=== PATIENT | male | born 1995 | race Caucasian/White ===

== ENCOUNTER 2017-02-09 15:07 | Day surgery (SDC) | payer BC ==
--- NOTE | 2017-02-22 17:08 | Operative Note ---
DATE OF SURGERY: 02/09/2017. PREOPERATIVE DIAGNOSIS: Urinary urgency and frequency and hesitancy. POSTOPERATIVE DIAGNOSIS: Urinary urgency and frequency and hesitancy. OPERATION: CYSTOSCOPY. Anesthesia: Local. Indication: A 21-year-old male with a history of the above symptoms, who presents for further urological investigation today. PROCEDURE: Preop informed consent was obtained. Antibiotics were given. The patient was brought to the procedure room at the [facility], placed supine, the genitalia were prepped and draped sterilely. Lidocaine jelly was placed in the urethra, and flexible cystoscopy was carried out. The urethra appears completely unremarkable. The prostate appears nonobstructive, and the bladder was entered and inspected carefully. Both ureteral orifices had normal appearance and positioning, and the bladder showed no evidence of any abnormality whatsoever. The scope was then withdrawn. The procedure was terminated, and patient tolerated the procedure well. PLAN: The patient's urinary symptoms are mild at this time. He does not desire any treatment. There is no evidence of any bladder outlet obstruction or urinary tract abnormality, and he will call for further treatment in the future as needed. CC: DO FLORA Chung
== END 2017-02-09 16:41 | disposition home or self-care (01) ==
LOC: HOP 15:07
PROVIDERS: ATTEND Urology
DX: R39.15 Urgency of urination (principal); R39.11 Hesitancy of micturition; R35.0 Frequency of micturition

== ENCOUNTER 2018-09-23 11:21 | Emergency (ER) | payer BC ==
[2018-09-23] MEDS ORDERED: PROPARACAINE HCL OPTH 15ML BTL OPTH ONE (11:31)
--- NOTE | 2018-09-23 11:48 | Emergency Department Record ---
History of Present Illness - General Chief complaint: Eye Problem Stated complaint: Glass in left eye Time Seen by Provider: 09/23/18 11:28 Source: Patient Mode of Arrival: Ambulatory Limitations: No limitations - History of Present Illness Initial comments: The patient is here due to L eye irritation for one day. 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 He then felt that he may have had some glass in the L eye. He then flushed the eye out but it has been irritated since. There has been no blurred vision or visual changes and the patient does not wear contacts. chief complaint: Other Onset/Timin -: Days(s) Onset Description: Sudden Location: Left eye Place: Work Severity: Moderate Severity scale (1-10): 1 If Pain, Quality: Aching Context: Injury, Trauma Treatments Prior to Arrival: Irrigated eye - Related Data Visual acuity (L) = 20/: 30 Visual acuity (R) = 20/: 40 With correction: No Patient Tetanus UTD (within 5 yrs): Yes Home Medications Medication Instructions Recorded Confirmed Last Taken No Home Med [NO HOME MEDS] 09/23/18 09/23/18 Unknown Allergies Allergy/AdvReac Type Severity Reaction Status Date / Time No Known Drug Allergies Allergy Verified 09/23/18 11:28 Travel Screening - Travel/Exposure Within Last 30 Days Have you traveled within the last 30 days?: No - Travel/Exposure Within Last Year Have you traveled outside the [place] in the last year?: No - Additonal Travel Details Have you been exposed to anyone with a communicable illness?: No - Travel Symptoms Symptom Screening: None Review of Systems Constitutional: Denies: Chills, Fever Eyes: Denies: Eye discharge, Eye pain, Photophobia ENT: Denies: Congestion Respiratory: Denies: Cough Past Medical History - SOCIAL HISTORY Smoking Status: Never smoker Alcohol Use: Occasional Drug Use: None - RESPIRATORY Hx Respiratory Disorders: No - CARDIOVASCULAR Hx Cardio Disorders: No - NEURO Hx Neuro Disorders: Yes Comment:: TBI - GI Hx GI Disorders: No - Hx Genitourinary Disorders: No - ENDOCRINE Hx Endocrine Disorders: No - MUSCULOSKELETAL Hx Musculoskeletal Disorders: Yes Hx Back Injury: Yes Comment:: Broken vertebrae - PSYCH Hx Psych Problems: No - HEMATOLOGY/ONCOLOGY Hx Hematology/Oncology Disorders: No Family Medical History Any Significant Family History?: Yes Hx Cancer: Grandparents Physical Exam - General General Appearance: Alert, Oriented x3, Cooperative, No acute distress - Head Head exam: Atraumatic, Normocephalic, Normal inspection - Eye Eye exam: Normal appearance, PERRL, EOMI, Other (There was a FB under the L upper eyelid that appeared to be very thin like paper. It measured approx. 2x5 mm and was easily removed with a Qtip. The L cornea was clear and without any abrasions.). negative: Conjunctival injection, Nystagmus, Periorbital swelling , Periorbital tenderness Visual acuity (L) = 20/: 30 Visual acuity (R) = 20/: 40 With correction: No Course Vital Signs 09/23/18 11:23 Temperature 98.2 F Pulse Rate 84 Respiratory 16 Rate Blood Pressure 119/78 Pulse Ox 99 - Reevaluation(s) Reevaluation #1: I explained to the patient that I believe the FB under the L upper eyelid was the issue and I see no evidence of any corneal injury or glass FB. 09/23/18 11:47 Reevaluation #2: The patient is doing very well at this time. His FB sensation has resolved and he is ready for discharge. 09/23/18 12:03 Disposition Disposition: Discharge Clinical Impression: Foreign body, eye Qualifiers: Encounter type: initial encounter Laterality: left Qualified Code(s): T15.92XA - Foreign body on external eye, part unspecified, left eye, initial encounter Disposition: Home, Self-Care Condition: (2) Stable Instructions: Eye Foreign Body (ED) Additional Instructions: Return to the ER for any problems or new issues. Please see an eye doctor next week for a full eye exam. Forms: Patient Portal Access Time of Disposition: 11:49 Quality - Quality Measures Quality Measures: N/A - Blood Pressure Screening View Details: Yes Does Patient Have Any of the Following: No Blood Pressure Classification: Normal BP Reading Systolic Measurement: 119 Diastolic Measurement: 78 Screening for High Blood Pressure: < Normal BP, F/U Not Required > [G8783]
== END 2018-09-23 12:06 | disposition home or self-care (01) ==
LOC: ER 11:21
DX: T15.12XA Foreign body in conjunctival sac, left eye, initial encounter (principal); S00.252A Superficial foreign body of left eyelid and periocular area, initial encounter; W25.XXXA Contact with sharp glass, initial encounter; Y99.0 Civilian activity done for income or pay
CPT/HCPCS: 65205; 99283

== ENCOUNTER 2019-08-30 12:48 | Emergency (ER) | payer BC ==
--- NOTE | 2019-08-30 13:24 | Emergency Department Record ---
History of Present Illness - General Chief Complaint: Ankle/Foot Injury Stated Complaint: LT ANKLE INJURY Time Seen by Provider: 08/30/19 13:22 Source: Patient Mode of Arrival: Ambulatory - History of Present Illness Initial Comments: The patient injured his heel while snowboarding last 08-27-19. He continues to have pain in his heel and is limping with ambulation. He denies other injury. MD Complaint: Foot injury (left heel) Onset/Timin -: Days(s) Type of Injury: Blunt Place: Street/outdoors Severity scale (1-10): 8 Improves With: Immobilization, Rest Worsens With: Palpation, Weight bearing Context: Jumping, Other Associated Symptoms: Able to partially bear weight - Related Data Allergies Allergy/AdvReac Type Severity Reaction Status Date / Time No Known Drug Allergies Allergy Verified 08/30/19 13:05 Travel Screening - Travel/Exposure Within Last 30 Days Have you traveled within the last 30 days?: Yes Location Detail:: [place] - Travel/Exposure Within Last Year Have you traveled outside the [place] in the last year?: No - Additonal Travel Details Have you been exposed to anyone with a communicable illness?: No - Travel Symptoms Symptom Screening: None Review of Systems Reviewed: No additional complaints except as noted below Constitutional: Reports: As per HPI. Denies: Chills, Fever, Malaise, Night sweats, Weakness, Weight change Eyes: Reports: As per HPI. Denies: Eye discharge, Eye pain, Photophobia, Vision change ENT: Reports: As per HPI. Denies: Congestion, Dental pain, Ear pain, Epistaxis, Hearing loss, Throat pain Respiratory: Reports: As per HPI. Denies: Cough, Dyspnea, Hemoptysis, Stridor, Wheezes Cardiovascular: Reports: As per HPI. Denies: Arrhythmia, Chest pain, Dyspnea on exertion, Edema, Murmurs, Orthopnea, Palpitations, Paroxysmal nocturnal dyspnea, Rheumatic Fever, Syncope Endocrine: Reports: As per HPI. Denies: Fatigue, Heat or cold intolerance, Polydipsia, Polyuria Gastrointestinal: Reports: As per HPI. Denies: Abdominal pain, Constipation, Diarrhea, Hematemesis, Hematochezia, Melena, Nausea, Vomiting Genitourinary: Reports: As per HPI. Denies: Dysuria, Frequency, Hematuria, Incontinence, Retention, Testicular pain, Testicular mass, Urgency Musculoskeletal: Reports: As per HPI. Denies: Arthralgia, Back pain, Gout, Joint swelling, Myalgia, Neck pain Skin: Reports: As per HPI. Denies: Bruising, Change in color, Change in hair/nails, Lesions, Pruritus, Rash Neurological: Reports: As per HPI. Denies: Abnormal gait, Confusion, Headache, Numbness, Paresthesias, Seizure, Tingling, Tremors, Vertigo, Weakness Psychiatric: Reports: As per HPI. Denies: Anxiety, Auditory hallucinations, Depression, Homicidal thoughts, Suicidal thoughts, Visual hallucinations Hematological/Lymphatic: Reports: As per HPI. Denies: Anemia, Blood Clots, Easy bleeding, Easy bruising, Swollen glands Past Medical History - SOCIAL HISTORY Smoking Status: Never smoker Alcohol Use: None Drug Use: None - RESPIRATORY Hx Respiratory Disorders: No - CARDIOVASCULAR Hx Cardio Disorders: No - NEURO Hx Neuro Disorders: Yes Comment:: TBI - GI Hx GI Disorders: No - Hx Genitourinary Disorders: No - ENDOCRINE Hx Endocrine Disorders: No - MUSCULOSKELETAL Hx Musculoskeletal Disorders: Yes Hx Back Injury: Yes Comment:: Broken vertebrae - PSYCH Hx Psych Problems: No - HEMATOLOGY/ONCOLOGY Hx Hematology/Oncology Disorders: No Family Medical History Any Significant Family History?: Yes Hx Cancer: Grandparents Physical Exam - General General Appearance: Alert, Oriented x3, Cooperative, No acute distress - Head Head exam: Normal inspection - Eye Eye exam: Normal appearance, PERRL Pupils: Normal accommodation - ENT ENT exam: Normal exam, Mucous membranes moist, Normal external ear exam, Normal orophraynx, TM's normal bilaterally Ear exam: Normal external inspection. negative: External canal tenderness Nasal Exam: Normal inspection. negative: Discharge, Sinus tenderness Mouth exam: Normal external inspection, Tongue normal Teeth exam: Normal inspection. negative: Dental caries Throat exam: Normal inspection. negative: Tonsillar erythema, Tonsillar exudate - Neck Neck exam: Normal inspection, Full ROM. negative: Lymphadenopathy, Meningismus, Tenderness - Respiratory Respiratory exam: Normal lung sounds bilaterally. negative: Respiratory distress - Cardiovascular Cardiovascular Exam: Regular rate - GI/Abdominal GI/Abdominal exam: Soft. negative: Tenderness - Rectal Rectal exam: Deferred - exam: Deferred - Extremities Extremities exam: Normal inspection, Full ROM, Normal capillary refill, Tenderness (tender over bottom of left heel on palpation. NO tenderness to foot, ankle, proximal fib.). negative: Calf tenderness, Pedal edema - Back Back exam: Reports: Normal inspection, Full ROM. Denies: Muscle spasm, Rash noted, Tenderness - Neurological Neurological exam: Alert, Normal gait, Oriented X3, Reflexes normal - Psychiatric Psychiatric exam: Normal affect, Normal mood - Skin Skin exam: Dry, Intact, Normal color, Warm Course Vital Signs 08/30/19 13:06 Temperature 98.1 F Pulse Rate 88 Respiratory 20 Rate Blood Pressure 137/85 Pulse Ox 98 Medical Decision Making - Data Complexity MDM Data: X-Ray Ordered and/or Reviewed (Left Heel xray negative per radiologist.) Disposition Disposition: Discharge Clinical Impression: Contusion of left heel Qualifiers: Encounter type: initial encounter Qualified Code(s): S90.32XA - Contusion of left foot, initial encounter Disposition: Home, Self-Care Condition: (1) Good Instructions: Heel Spur (ED), Exercise Safety (ED), Calcaneal Fracture (ED) Additional Instructions: Ice. elevate. Tylenol alternated with ibuprofen as needed as directed. Use crutches for ambulation until heel is 100% painfree. PCP follow up as needed and for recheck in office this week. Quality - Quality Measures Quality Measures: N/A - Blood Pressure Screening Does Patient Have Any of the Following: No Blood Pressure Classification: Pre-Hypertensive BP Reading Systolic Measurement: 137 Diastolic Measurement: 85 Screening for High Blood Pressure: < Pre-Hypertensive BP, F/U Documented > [G8950] Pre-Hypertensive Follow-up Interventions: Follow-up with rescreen every year., Lifestyle modifications., Referral to alternative/primary care provider. Lifestyle Modification: Weight Reduction, Dietary Approaches to Stop Hyp ertension (DASH) Eating Plan, Dietary Sodium Restriction, Increased Physical Activity, Moderation in alcohol (ETOH) consumption
--- NOTE | 2019-08-30 14:09 | RADIOLOGY REPORT ---
EXAMINATION: Left Calcaneus, Minimum Two Views EXAM DATE: 08/30/2019 1:33 PM TECHNIQUE: Axial and lateral INDICATION: injury COMPARISON: None ENCOUNTER: Initial FINDINGS: There is no bone or joint abnormality. IMPRESSION: Normal exam. Dictated by: Radha Velasquez MD on 08/30/2019 2:06 PM. .
== END 2019-08-30 14:55 | disposition home or self-care (01) ==
LOC: ER 12:48
DX: S90.32XA Contusion of left foot, initial encounter (principal); X50.9XXA Other and unspecified overexertion or strenuous movements or postures, initial encounter; Y93.23 Activity, snow (alpine) (downhill) skiing, snowboarding, sledding, tobogganing and snow tubing
CPT/HCPCS: 99283